=== PATIENT | female | born 1970 | race Caucasian/White ===

== ENCOUNTER 2018-09-06 04:02 | Emergency (ER) | payer OTHER ==
[~2018-09-06] VITALS: Ht 160 cm; Wt 90.7 kg
[~2018-09-06 04:02] MED LIST: HYDR12.58 PO; OXYC-323 PO
[2018-09-06] MEDS ORDERED: IV NORMAL SALINE 1000ML BAG 1,000 ML IV ONE (05:00)
[2018-09-06] MEDS ORDERED: KETOROLAC 30 MG/ML VIAL. IV ONE (05:00)
[2018-09-06 05:07] LABS: BASO # 0.1 x10^3/uL (0.0-0.2); BASO % 0 % (0-3); EOS # 0.1 x10^3/uL (0.0-0.7); EOS % 0 % (0-3); HEMATOCRIT 45.2 % (36.0-47.0); HEMOGLOBIN 15.6 g/dL (12.0-15.5); LYMPH # 2.4 x10^3/uL (1.0-4.8); LYMPH % 12 % (24-48); MEAN CORPUSCULAR HEMOGLOBIN 30 pg (25-35); MEAN CORPUSCULAR HGB CONC 35 g/dL (31-37); MEAN CORPUSCULAR VOLUME 87 fL (79-100); MONO # 0.5 x10^3/uL (0.0-1.1); MONO % 3 % (0-9); NEUT # 16.9 x10^3uL (1.8-7.7); NEUT % 85 % (31-73); PLATELET COUNT 372 x10^3/uL (140-400); RED CELL DISTRIBUTION WIDTH 14.7 % (11.5-14.5); WHITE BLOOD COUNT 19.9 x10^3/uL (4.0-11.0)
--- NOTE | 2018-09-06 05:27 | RAD ---
EXAM: CT Abdomen and Pelvis without IV contrast CLINICAL HISTORY: Right flank pain x tonight. COMPARISON: 04/25/2010 TECHNIQUE: Helical CT of the abdomen and pelvis without intravenous contrast. Axial, coronal and sagittal reformatted images were generated. PQRS compliance statement - One or more of the following individualized dose reduction techniques were utilized for this study: 1. Automated exposure control 2. Adjustment of the mA and/or kV according to patient size 3. Use of iterative reconstruction technique FINDINGS: Lack of intravenous contrast limits evaluation of solid organs, vasculature, and lymph nodes. Lower chest: Dependent opacities likely atelectasis. Abdomen and Pelvis: No focal liver lesion. Gallbladder is normal. No biliary ductal dilatation. Spleen is unremarkable. Small splenule is seen. Hypodense left adrenal lesions measure fat density, likely lipid rich adenomas. Pancreas is unremarkable. Kidneys are normal in size and shape. Left renal calculi are nonobstructing. There is a 5 mm calculus at the right ureteropelvic junction which causes mild right hydronephrosis. Small large bowel are normal in caliber. Appendix is normal. Moderate colonic stool content. No abdominal pelvic ascites. No abdominal or pelvic lymphadenopathy. Colonic diverticula are seen. No evidence of acute diverticulitis. Bones: Degenerative changes of the spine and SI joints are seen. IMPRESSION: 1. A 5 mm calculus is seen at the right ureteropelvic junction/proximal right ureter causing mild right hydronephrosis. 2. Nonobstructing left renal calculi are seen. 3. Left adrenal lesions measure fat density, likely lipid rich adenomas. Electronically signed by: Jacob Gomez MD (09/06/2018 5:23 AM) [id number]
[2018-09-06 05:35] LABS: CALCIUM 9.9 mg/dL (8.5-10.1); CREATININE 0.7 mg/dL (0.6-1.0); GFR 89.3; POTASSIUM 4.1 mmol/L (3.5-5.1)
[2018-09-06] MEDS ORDERED: TAMSULOSIN 0.4 MG CAP.ER.24H. PO ONE (06:00)
[2018-09-06] MEDS ORDERED: MORPHINE SULFATE 4 MG/ML VIAL. IV ONE (06:15)
[2018-09-06] MEDS ORDERED: HYDR-971 PO (06:29)
[2018-09-06] MEDS ORDERED: IBUP-1060 PO (06:29)
[2018-09-06] MEDS ORDERED: TAMS0.4C97 PO (06:29)
[2018-09-06] MEDS ORDERED: MORPHINE SULFATE 10 MG/ML VIAL. IV ONE (06:30)
[2018-09-06 06:32] VITALS: BP 123/71
--- NOTE | 2018-09-06 08:49 | PHYS DOC ---
Past Medical History Past Medical History: Hypertension, Kidney Stone Past Surgical History: , Tubal ligation Additional Past Surgical Histo: [id number] stone removal, Hernia Alcohol Use: None Drug Use: Marijuana Adult General Chief Complaint Chief Complaint: FLANK PAIN [place] [employer] [facility] HPI Patient is a 48 year old female who presents with flank pain. Patient had sudden onset of right flank pain about 2 hours prior to presentation. She had some nausea but no vomiting. The pain is described to be dull and achy and severe. The patient does have a known prior history of kidney stones but states she has had these on the left and never on the right. She has had no fever or chills. She denies hematuria or any other urinary symptoms. No abdominal pain. Review of Systems Review of Systems Constitutional: Denies fever or chills Eyes: Denies change in visual acuity HENT: Denies nasal congestion or sore throat Respiratory: Denies cough or shortness of breath Cardiovascular: No additional information not addressed in HPI GI: Denies abdominal pain : Denies dysuria or hematuria Musculoskeletal: Denies back pain or joint pain Integument: Denies rash or skin lesions Neurologic: Denies headache Endocrine: Denies polyuria All other systems were reviewed and found to be within normal limits, except as documented in this note. Current Medications Current Medications Current Medications Medications (Trade) Dose Ordered Sig/Andrea Start Time Stop Time Status Last Admin Dose Admin Ketorolac Tromethamine (Toradol 30mg Vial) 30 mg 1X ONCE 09/06/18 05:00 09/06/18 05:01 DC 09/06/18 05:03 30 MG Morphine Sulfate (Morphine Sulfate) 6 mg 1X ONCE 09/06/18 06:15 09/06/18 06:16 UNV Sodium Chloride 1,000 ml @ 1,000 mls/hr 1X ONCE 09/06/18 05:00 09/06/18 05:59 DC 09/06/18 05:03 1,000 MLS/HR Tamsulosin HCl (Flomax) 0.4 mg 1X ONCE 09/06/18 06:00 09/06/18 06:01 DC 09/06/18 05:58 0.4 MG Allergies Allergies Allergies Coded Allergies Type Severity Reaction Last Updated Verified No Known Drug Allergies 05/26/14 No Physical Exam Physical Exam Constitutional: Well developed, well nourished, no acute distress HENT: Normocephalic, atraumatic, bilateral external ears normal, oropharynx moist Eyes: PERRLA, EOMI, conjunctiva normal Neck: Normal range of motion, no tenderness, supple Cardiovascular:Heart rate regular rhythm, no murmur Lungs & Thorax: Bilateral breath sounds clear to auscultation Abdomen: Bowel sounds normal, soft, no tenderness Skin: Warm, dry Back: CVA tenderness on the right Extremities: No tenderness Neurologic: Alert and oriented X 3 Psychologic: Affect normal Current Patient Data Vital Signs Vital Signs Date Time Temp Pulse Resp B/P (MAP) Pulse Ox O2 Delivery O2 Flow Rate FiO2 09/06/18 06:32 68 16 123/71 (88) 99 Room Air 09/06/18 04:13 97.4 97.4 Lab Values Laboratory Tests Test 09/06/18 04:38 White Blood Count 19.9 x10^3/uL (4.0-11.0) H Red Blood Count 5.20 x10^6/uL (3.50-5.40) Hemoglobin 15.6 g/dL (12.0-15.5) H Hematocrit 45.2 % (36.0-47.0) Mean Corpuscular Volume 87 fL (79-100) Mean Corpuscular Hemoglobin 30 pg (25-35) Mean Corpuscular Hemoglobin Concent 35 g/dL (31-37) Red Cell Distribution Width 14.7 % (11.5-14.5) H Platelet Count 372 x10^3/uL (140-400) Neutrophils (%) (Auto) 85 % (31-73) H Lymphocytes (%) (Auto) 12 % (24-48) L Monocytes (%) (Auto) 3 % (0-9) Eosinophils (%) (Auto) 0 % (0-3) Basophils (%) (Auto) 0 % (0-3) Neutrophils # (Auto) 16.9 x10^3uL (1.8-7.7) H Lymphocytes # (Auto) 2.4 x10^3/uL (1.0-4.8) Monocytes # (Auto) 0.5 x10^3/uL (0.0-1.1) Eosinophils # (Auto) 0.1 x10^3/uL (0.0-0.7) Basophils # (Auto) 0.1 x10^3/uL (0.0-0.2) Platelet Estimate Pending Sodium Level 140 mmol/L (136-145) Potassium Level 4.1 mmol/L (3.5-5.1) Chloride Level 103 mmol/L (98-107) Carbon Dioxide Level 25 mmol/L (21-32) Anion Gap 12 (6-14) Blood Urea Nitrogen 20 mg/dL (7-20) Creatinine 0.7 mg/dL (0.6-1.0) Estimated GFR (Cockcroft-Gault) 89.3 Glucose Level 146 mg/dL (70-99) H Calcium Level 9.9 mg/dL (8.5-10.1) Laboratory Tests 09/06/18 04:38 Laboratory Tests 09/06/18 04:38 EKG EKG [] Radiology/Procedures Radiology/Procedures FINDINGS: Lack of intravenous contrast limits evaluation of solid organs, vasculature, and lymph nodes. Lower chest: Dependent opacities likely atelectasis. Abdomen and Pelvis: No focal liver lesion. Gallbladder is normal. No biliary ductal dilatation. Spleen is unremarkable. Small splenule is seen. Hypodense left adrenal lesions measure fat density, likely lipid rich adenomas. Pancreas is unremarkable. Kidneys are normal in size and shape. Left renal calculi are nonobstructing. There is a 5 mm calculus at the right ureteropelvic junction which causes mild right hydronephrosis. Small large bowel are normal in caliber. Appendix is normal. Moderate colonic stool content. No abdominal pelvic ascites. No abdominal or pelvic lymphadenopathy. Colonic diverticula are seen. No evidence of acute diverticulitis. Bones: Degenerative changes of the spine and SI joints are seen. IMPRESSION: 1. A 5 mm calculus is seen at the right ureteropelvic junction/proximal right ureter causing mild right hydronephrosis. 2. Nonobstructing left renal calculi are seen. 3. Left adrenal lesions measure fat density, likely lipid rich adenomas. Course & Med Decision Making Course & Med Decision Making Pertinent Labs and Imaging studies reviewed. (See chart for details) Patient was evaluated in the emergency department for suspected kidney stone on the right. CT scan did confirm this diagnosis. She was given some IV fluids and a single dose of Toradol which relieved her pain from a 10 over 10 down to a 5/ 10. Following this, she was given a dose of morphine which did make her pain- free. CT scan was revealing for a 5 mm stone in the right. There was mild hydronephrosis. The urine was with some hematuria but no acute infection. The stone is 5 mm. I discussed the chances of passing this stone with the patient and emphasized that this stone could still be passed spontaneously but that the odds were not in favor of this outcome. The patient has had 6 prior kidney stones and feels very comfortable with this condition. She has had prior intervention including surgery as well for management of kidney stone. I offered the patient the option of admission for IV pain control and inpatient urology consultation versus discharge home with Flomax and pain medications at home. The patient preferred discharge to home. She was provided the number to the local cardiology residential and she will call this morning to schedule a close follow-up appointment. She was started on Flomax. She was provided ibuprofen and [place] for more severe pain. Opiate precautions were discussed. All of her questions were answered prior to discharge home and she was also advised to come back to the ER if her pain was poorly controlled or if she developed a fever or any worsening symptoms at home. Patient was accompanied by her who is driving her home today. Dragon Disclaimer Dragon Disclaimer This electronic medical record was generated, in whole or in part, using a voice recognition dictation system. Departure Departure Impression: Primary Impression: Renal lithiasis Disposition: 01 HOME, SELF-CARE Condition: GOOD Referrals: ALICJA BANSAL MD Patient Instructions: Kidney Stones, [id number] Scripts Tamsulosin Hcl (FLOMAX) 0.4 Mg Cap.er.24h 0.4 MG PO DAILY for 15 Days, #15 TAB 1 Refill Prov: LAURYN VALDOVINOS DO 09/06/18 Ibuprofen (IBUPROFEN) 800 Mg Tablet 800 MG PO PRN TID PRN for PAIN, #30 TAB take with food or milk to avoid upsetting stomach Prov: LAURYN VALDOVINOS DO 09/06/18 Hydrocodone/Apap 5-325 (NORCO 5-325 TABLET) 1 Each Tablet 1-2 EACH PO PRN Q6HRS PRN for severe pain, #30 as needed for pain Prov: LAURYN VALDOVINOS DO 09/06/18 LAURYN VALDOVINOS DO Sep 06, 2018 08:49
[2018-09-06 09:25] LABS: % BANDS 2 % (0-9); % EOS 2 % (0-5); % LYMPHS 11 % (24-48); % MONOS 4 % (0-10); % SEGS 81 % (35-66)
[2018-09-06 09:26] LABS: PLT ESTIMATE ADEQUATE (ADEQUATE)
== END 2018-09-06 06:55 | disposition home or self-care (01) ==
LOC: ER 04:02
DX: N13.2 Hydronephrosis with renal and ureteral calculous obstruction (principal); I10 Essential (primary) hypertension; Z98.890 Other specified postprocedural states; Z98.51 Tubal ligation status
CPT/HCPCS: 36415; 74176; 80048; 85007; 85025; 96374; 96375; 99285; J1885; J2270; J7030

== ENCOUNTER → 2018-09-19 | Outpatient (CLI) | payer OTHER ==
[2014-05-26 13:36] VITALS: BP 100/58
[~2018-09-19] MED LIST changes: +HYDR-971 PO; +IBUP-1060 PO; +TAMS0.4C97 PO
--- NOTE | 2018-09-19 16:50 | RAD ---
KUB, 09/19/2018: HISTORY: Right kidney stone The abdominal gas pattern is unremarkable. Bowel content partially obscures the renal regions. A tiny intrarenal calculus is seen in the upper pole of the left kidney. The patient's proximal right ureteral calculus evident on the 09/06/2018 CT study is not currently visible at that level. Bilateral lower pelvic calcifications are probably phleboliths. There is no evidence organomegaly. Mild spurring is present in the spine. IMPRESSION: No acute abdominal abnormality is detected. Electronically signed by: Bill Leong MD (09/19/2018 4:47 PM) [facility]
== END | disposition home or self-care (01) ==
LOC: RAD 11:44
PROVIDERS: ATTEND Urology
DX: N20.1 Calculus of ureter (principal); M77.8 Other enthesopathies, not elsewhere classified
CPT/HCPCS: 74018

== ENCOUNTER 2021-02-17 09:25 | Emergency (ER) | payer OTHER ==
[~2021-02-17] VITALS: Ht 160 cm; Wt 98.0 kg
[~2021-02-17 09:25] MED LIST changes: +HYDR-3164 PO; -HYDR-971 PO; -OXYC-323 PO; +OXYC1TAB15 PO
[2021-02-17] MEDS ORDERED: IV NORMAL SALINE 1000ML BAG 1,000 ML IV ONE (10:15)
[2021-02-17] MEDS ORDERED: KETOROLAC 30 MG/ML VIAL. IVP ONE (10:15)
[2021-02-17] MEDS ORDERED: ONDANSETRON PF 4 MG/2 ML VIAL. IVP ONE (10:15)
[2021-02-17] MEDS ORDERED: MORPHINE SULFATE 10 MG/ML VIAL. IV ONE ×2 (10:15→13:00)
[2021-02-17] MEDS ORDERED: KETOROLAC 30 MG/ML VIAL. ONE (10:16)
[2021-02-17 10:17] LABS: BILIRUBIN,URINE NEGATIVE (NEG); CLARITY,URINE CLOUDY; COLOR,URINE AMBER; NITRITE,URINE NEGATIVE (NEG); PH,URINE 5.5 (<5.0-8.0); PROTEIN,URINE 100 mg/dL (NEG-TRACE); UROBILINOGEN,URINE 0.2 mg/dL (0.2 mg/dL)
[2021-02-17] MEDS ORDERED: MORPHINE SULFATE 10 MG/ML VIAL. ONE (10:17)
[2021-02-17 10:22] LABS: RBC,URINE >40 /HPF (0-2)
[2021-02-17 10:24] LABS: BACTERIA,URINE FEW /HPF (0-FEW)
[2021-02-17 10:27] LABS: CALCIUM 9.1 mg/dL (8.5-10.1); CREATININE 0.8 mg/dL (0.6-1.0); GFR 75.9; POTASSIUM 3.8 mmol/L (3.5-5.1)
[2021-02-17 10:32] LABS: ALBUMIN 3.6 g/dL (3.4-5.0); TOTAL BILIRUBIN 0.3 mg/dL (0.2-1.0); TOTAL PROTEIN 7.2 g/dL (6.4-8.2)
[2021-02-17 10:39] LABS: BASO # 0.1 x10^3/uL (0.0-0.2); BASO % 0 % (0-3); EOS # 0.1 x10^3/uL (0.0-0.7); EOS % 1 % (0-3); HEMOGLOBIN 14.5 g/dL (12.0-15.5); LYMPH # 3.7 x10^3/uL (1.0-4.8); LYMPH % 18 % (24-48); MEAN CORPUSCULAR HEMOGLOBIN 30 pg (25-35); MEAN CORPUSCULAR HGB CONC 34 g/dL (31-37); MEAN CORPUSCULAR VOLUME 87 fL (79-100); MONO # 1.3 x10^3/uL (0.0-1.1); MONO % 6 % (0-9); NEUT # 15.3 x10^3/uL (1.8-7.7); NEUT % 75 % (31-73); PLATELET COUNT 410 x10^3/uL (140-400); RED BLOOD COUNT 4.92 x10^6/uL (3.50-5.40); RED CELL DISTRIBUTION WIDTH 14.6 % (11.5-14.5); WHITE BLOOD COUNT 20.5 x10^3/uL (4.0-11.0)
[2021-02-17 11:07] VITALS: BP 120/56
--- NOTE | 2021-02-17 11:11 | ED.ADGEN ---
Past Medical History Past Medical History: Hypertension, Kidney Stone Past Surgical History: , Tubal ligation Additional Past Surgical Histo: Kidney stone removal, Hernia Smoking Status: Current Every Day Smoker Alcohol Use: None General Adult EDM: Chief Complaint: FLANK PAIN HPI: HPI: Patient is a 50-year-old female who presents to the emergency room complaining of left-sided flank pain. Patient states that it started 2 days ago. She states that she has had intermittent issues with flank pain for the last week but typically her kidney stones will pass without having to come to the emergency room. She states that she does have significant hematuria. She states that it has not been this bad in a very long time. She does not follow with the urologist. She states that her kidney stones are genetic. She states the pain is sharp and spasm-like in nature. It has become constant. She has associated nausea, vomiting. She denies any fevers, chills, sweats, diarrhea, constipation, chest pain, shortness of breath, URI symptoms. Review of Systems: Review of Systems: Complete ROS is negative unless otherwise documented in HPI Current Medications: Current Medications Medications (Trade) Dose Ordered Sig/Andrea Start Time Stop Time Status Last Admin Dose Admin Ketorolac Tromethamine (Toradol 30mg Vial) 30 mg STK-MED ONCE 02/17/21 10:16 02/17/21 10:17 DC Morphine Sulfate (Morphine Sulfate) 5 mg 1X ONCE 02/17/21 13:00 02/17/21 13:01 Ondansetron HCl (Zofran) 4 mg 1X ONCE 02/17/21 10:15 02/17/21 10:17 DC 02/17/21 10:20 4 MG Sodium Chloride 1,000 ml @ 1,000 mls/hr 1X ONCE 02/17/21 10:15 02/17/21 11:14 DC 02/17/21 10:19 1,000 MLS/HR Allergies: Allergies: Allergies Coded Allergies Type Severity Reaction Last Updated Verified No Known Drug Allergies 05/26/14 No Physical Exam: PE: General: Awake, alert, mild distress. Well Nourished, well hydrated. Cooperative HEENT: Atraumatic, EOMI, PERRL, airway patent, moist oral mucosa Neck: Supple, trachea midline Respiratory: CTA bilaterally, normal effort, no wheezing/crackles CV: RRR, no murmur, cap refill <2 GI: Soft, nondistended, nontender, no masses, left-sided flank tenderness MSK: No obvious deformities Skin: Warm, dry, intact Neuro: A&O x3, speech NL, sensory and motor grossly intact, no focal deficits Psych: Normal affect, normal mood, not suicidal or homicidal Current Patient Data: Labs: Laboratory Tests Test 02/17/21 09:35 02/17/21 10:10 Urine Collection Type Unknown Urine Color Renata Urine Clarity Cloudy Urine pH 5.5 (<5.0-8.0) Urine Specific [place] >=1.030 (1.000-1.030) Urine Protein 100 mg/dL (NEG-TRACE) Urine Glucose (UA) Negative mg/dL (NEG) Urine Ketones (Stick) Trace mg/dL (NEG) Urine Blood Large (NEG) Urine Nitrite Negative (NEG) Urine Bilirubin Negative (NEG) Urine Urobilinogen Dipstick 0.2 mg/dL (0.2 mg/dL) Urine Leukocyte Esterase Small (NEG) Urine RBC >40 /HPF (0-2) Urine WBC 1-4 /HPF (0-4) Urine Squamous Epithelial Cells Many /LPF Urine Bacteria Few /HPF (0-FEW) White Blood Count 20.5 x10^3/uL (4.0-11.0) H Red Blood Count 4.92 x10^6/uL (3.50-5.40) Hemoglobin 14.5 g/dL (12.0-15.5) Hematocrit 43.0 % (36.0-47.0) Mean Corpuscular Volume 87 fL (79-100) Mean Corpuscular Hemoglobin 30 pg (25-35) Mean Corpuscular Hemoglobin Concent 34 g/dL (31-37) Red Cell Distribution Width 14.6 % (11.5-14.5) H Platelet Count 410 x10^3/uL (140-400) H Neutrophils (%) (Auto) 75 % (31-73) H Lymphocytes (%) (Auto) 18 % (24-48) L Monocytes (%) (Auto) 6 % (0-9) Eosinophils (%) (Auto) 1 % (0-3) Basophils (%) (Auto) 0 % (0-3) Neutrophils # (Auto) 15.3 x10^3/uL (1.8-7.7) H Lymphocytes # (Auto) 3.7 x10^3/uL (1.0-4.8) Monocytes # (Auto) 1.3 x10^3/uL (0.0-1.1) H Eosinophils # (Auto) 0.1 x10^3/uL (0.0-0.7) Basophils # (Auto) 0.1 x10^3/uL (0.0-0.2) Segmented Neutrophils % 77 % (35-66) H Lymphocytes % 15 % (24-48) L Monocytes % 7 % (0-10) Eosinophils % 1 % (0-5) Platelet Estimate Adequate (ADEQUATE) Sodium Level 140 mmol/L (136-145) Potassium Level 3.8 mmol/L (3.5-5.1) Chloride Level 104 mmol/L (98-107) Carbon Dioxide Level 23 mmol/L (21-32) Anion Gap 13 (6-14) Blood Urea Nitrogen 23 mg/dL (7-20) H Creatinine 0.8 mg/dL (0.6-1.0) Estimated GFR (Cockcroft-Gault) 75.9 BUN/Creatinine Ratio 29 (6-20) H Glucose Level 118 mg/dL (70-99) H Calcium Level 9.1 mg/dL (8.5-10.1) Total Bilirubin 0.3 mg/dL (0.2-1.0) Aspartate Amino Transferase (AST) 14 U/L (15-37) L Alanine Aminotransferase (ALT) 22 U/L (14-59) Alkaline Phosphatase 81 U/L (46-116) Total Protein 7.2 g/dL (6.4-8.2) Albumin 3.6 g/dL (3.4-5.0) Albumin/Globulin Ratio 1.0 (1.0-1.7) Laboratory Tests 02/17/21 10:10 Laboratory Tests 02/17/21 10:10 Vital Signs: Vital Signs Date Time Temp Pulse Resp B/P (MAP) Pulse Ox O2 Delivery O2 Flow Rate FiO2 02/17/21 11:07 70 16 120/56 (77) 98 Room Air 02/17/21 09:35 98.1 98.1 EKG: EKG: [] Heart Score: C/O Chest Pain: N/A Risk Factors: Risk Factors: DM, Current or recent (<one month) smoker, HTN, HLP, family history of CAD, obesity. Risk Scores: Score 0 - 3: 2.5% MACE over next 6 weeks - Discharge Home Score 4 - 6: 20.3% MACE over next 6 weeks - Admit for Clinical Observation Score 7 - 10: 72.7% MACE over next 6 weeks - Early Invasive Strategies Radiology/Procedures: Radiology/Procedures: [] Course & Med Decision Making: Course & Med Decision Making Pertinent Labs and Imaging studies reviewed. (See chart for details) Patient is a 50 year old who presents to the Emergency Room complaining of left flank pain and hematuria. On exam, patient is in mild distress and has left- sided flank tenderness. Patient's presentation is concerning for a possible kidney stone. Patient was given morphine and Toradol for pain relief. CBC, BMP, UA were ordered to evaluate for kidney function and infection. CT abdomen and pelvis without contrast was ordered to evaluate for a kidney stone. CT shows 2 kidney stones within the ureter. At this time, patient does not have significant infection, signs of sepsis, TERRY, or uncontrolled pain that requires admission. I did offer the patient transfer to the hospital with urology given her hydronephrosis, increased white cell count, and multiple stones. At this time patient would like to try to pass them on her own. We will place her on the appropriate medications. Patient will follow up with urology later this week. If pain does not improve in the next 24 hours, she develops a fever, or she has any other concerns she will go to the emergency room. Patient will be treated symptomatically and referred to urology. Patient's test results and vitals while in the ED were fully reviewed and discussed with the patient. Patient is stable and at this time does not need admission to the hospital. We have discuss ed strict return precautions and the importance of following up with their Primary Care Physician. Patient stated understanding and was given an opportunity to ask any questions. Patient is in agreement with plan. Samina Disclaimer: Samina Disclaimer: This electronic medical record was generated, in whole or in part, using a voice recognition dictation system. Departure Departure Impression: Primary Impression: Kidney stone Additional Impression: Hydronephrosis Disposition: 01 DC HOME SELF CARE/HOMELESS Condition: IMPROVED Referrals: SREE BROWN MD (PCP) Patient Instructions: Kidney Stones Scripts Cephalexin (CEPHALEXIN) 500 Mg Capsule 1 CAP PO BID, #10 CAP Prov: FREDY BARLOW MD 02/17/21 Tamsulosin Hcl (FLOMAX) 0.4 Mg Cap.er.24h 1 CAP PO DAILY, #14 CAP 0 Refills Prov: FREDY BARLOW MD 02/17/21 Oxycodone/Apap 5-325 (PERCOCET 5-325 MG TABLET ) 1 Each Tablet 1 TAB PO PRN Q6HRS PRN for PAIN, #20 TAB 0 Refills Prov: FREYD BARLOW MD 02/17/21 Problem Qualifiers FREDY BARLOW MD Feb 17, 2021 11:11
--- NOTE | 2021-02-17 11:33 | RAD ---
CT abdomen pelvis without contrast. HISTORY: Abdominal pain, left-sided pain CT scan the abdomen pelvis was done without contrast. Comparison is made with a study from September 08. There are interstitial changes in the lung bases with thickening of interlobular septa similar to the old study. There is no pleural effusion. Liver is generous in size without a focal lesion. There is no calcified gallstone or gallbladder wall thickening. There is a normal appearance to the spleen . There is a left adrenal adenoma or left adrenal cyst without change from the old exam. There is no mass or hydronephrosis in the right kidney. There is a 3 mm calculus in the mid right kidney. There i s left hydronephrosis. There is a punctate intrarenal calculus in the lower left kidney. There is a 1 .2 x 1.5 cm calculus at the renal pelvis on the left. There are 2 calculi in the distal left ureter m easuring 4 mm and 5 mm in longitudinal dimension slightly less in transverse dimension. Bladder is un remarkable. Uterus and ovaries are normal. Appendix is normal. There is no free air or ascites or bow el obstruction. IMPRESSION: 1. Small intrarenal calculus right kidney. 2. Small intrarenal calculus lower left kidney. 3. Prominent 1.5 x 1.2 cm calculus left renal pelvis. 4. 2 calculi 4 and 5 mm in the distal left ureter with left hydronephrosis. 5. Interstitial lung disease mainly on the right with thickening of interlobular septa similar to the old study from 2018. PQRS Compliance Statement: One or more of the following individualized dose reduction techniques were utilized for this examinat ion: 1. Automated exposure control 2. Adjustment of the mA and/or kV according to patient size 3. Use of iterative reconstruction technique Electronically signed by: Alexis Lazar MD (02/17/2021 11:31 AM) [id number]
[2021-02-17 11:34] LABS: % EOS 1 % (0-5); % LYMPHS 15 % (24-48); % MONOS 7 % (0-10); % SEGS 77 % (35-66); PLT ESTIMATE ADEQUATE (ADEQUATE)
[2021-02-17] MEDS ORDERED: OXYC1TAB15 PO (12:54)
[2021-02-17] MEDS ORDERED: CEPH500C PO (12:54)
[2021-02-17] MEDS ORDERED: TAMS0.4C97 PO (12:54)
== END 2021-02-17 13:15 | disposition home or self-care (01) ==
LOC: ER 09:25
DX: N13.2 Hydronephrosis with renal and ureteral calculous obstruction (principal); R10.32 Left lower quadrant pain; R11.2 Nausea with vomiting, unspecified; R31.9 Hematuria, unspecified; I10 Essential (primary) hypertension; F17.200 Nicotine dependence, unspecified, uncomplicated; Z98.51 Tubal ligation status; Z98.890 Other specified postprocedural states
CPT/HCPCS: 36415; 74176; 80053; 81001; 85007; 85025; 87086; 96361; 96374; 96375; 96376; 99284; J1885; J2270; J2405; J7030